=== PATIENT | female | born 2005 | race Caucasian/White ===

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

== ENCOUNTER 2024-04-23 20:17 | Emergency (ER) | payer OTHER, BC ==
[2024-04-23 20:23] VITALS: RESP 16
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
[2024-04-23] MEDS: LIDOCAINE 4% PATCH TOPICAL ONE (21:48)
[2024-04-23 21:54] VITALS: BP 116/78; PULSE 82; TEMP 98.1
== END 2024-04-23 21:54 | disposition home or self-care (01) ==
LOC: EC 20:17
DX: S73.101A Unspecified sprain of right hip, initial encounter (principal); Z88.0 Allergy status to penicillin; V43.52XA Car driver injured in collision with other type car in traffic accident, initial encounter; Y92.410 Unspecified street and highway as the place of occurrence of the external cause
CPT/HCPCS: 73502; 99284